=== PATIENT | female | born 1985 | race Caucasian/White ===

== ENCOUNTER 2017-08-09 05:29 | Inpatient (IN) ==
[2017-08-09] MEDS ORDERED: 0.9 % Sodium Chloride 1,000 ML IVC ONE (05:43)
[2017-08-09] MEDS ORDERED: *HR* LORazepam 1 MG TABLET PO ONE (05:46)
[2017-08-09] MEDS ORDERED: Ibuprofen 600 MG TABLET PO ONE (05:46)
--- NOTE | 2017-08-09 05:49 | Emergency Department Note ---
START Narrative - START START: I reviewed nursing notes and vital signs. Patient is a 31-year-old female with known history of IV drug use, presents with worsening infection to her right upper extremity. I had seen the patient 2 days ago in fast track area, at that time her arm is concerning for cellulitis and possible abscess. She had declined incision and drainage, and evaluation at bedside ultrasound at that time. She did receive a prescription of antibiotics, recommendations to return with any worsening symptoms or no improvement. She returns today with worsening redness, swelling, and pain. She mentions that she had lost her prescription of antibiotics. She denies any drug use in the past 2 days. On examination, she does have significant worsening of swelling, erythema. She also has decreased range of motion of her fingers, and they are slightly flexed. She does have worsening pain with extension of her elbow. I have ordered a sepsis workup, since patient is tachycardic, and known source of infection. I have ordered her ibuprofen for pain, she does appear anxious, and may be withdrawing. I have ordered Ativan. I have ordered an x-ray as patient has described IV drug use. I also discussed patient with Dr. Pak, who also had face time with patient. He agrees with sepsis workup, and x-ray, also advised for IV Zosyn and vancomycin, clindamycin. He mentions concerning signs for chest fasciitis and advised for a CT the extremity, and treatment with methadone as well. Due to concern for the nec fasciitis, Dr. Pak I did discuss patient with on- call general surgeon Dr. Gonzalez, who had advised for consult with orthopedics since it did involve his hands. He also advised for Haldol. This is a start note. It is at the end of my shift. Patient will be seen and evaluated by dayshift provider, Jaqueline Graf CNP. Please see her further documentation for details.
[2017-08-09] MEDS ORDERED: *HR* Methadone 5 MG TABLET PO ONE (05:58)
[2017-08-09] MEDS ORDERED: Haloperidol Lactate 5 MG/ML VIAL IM ONE (06:08)
--- NOTE | 2017-08-09 06:13 | Emergency Department Note ---
Disposition Clinical Impression: Venous thromboembolism, IV drug abuse Cellulitis Qualifiers: Site of cellulitis: extremity Site of cellulitis of extremity: upper extremity Laterality: right Qualified Code(s): L03.113 - Cellulitis of right upper limb Disposition: Admitted As Inpatient Condition: Fair General Adult HPI - General Chief complaint: ED Skin/Abscess/Foreign Body Stated complaint: right arm abcess Time Seen by Provider: 08/09/17 05:41 Source: patient Limitations: no limitations - History of Present Illness Pain Scale: 10 - Related Data Home Medications Medication Instructions Recorded Confirmed Unable To Obtain [Unable to Obtain] 08/10/17 08/10/17 Allergies Allergy/AdvReac Type Severity Reaction Status Date / Time No Known Allergies Allergy Verified 08/07/17 17:53 Past Medical History - Past Medical History Medical history: Reports: no medical history, other Psychiatric history: Reports: anxiety - Social History Smoking Status: Current every day smoker Smokeless Tobacco Status: No Alcohol use: Reports: none Drug use: Reports: opiates, IV Drug Use, prescription drug abuse, other Physical Exam - General Limitations: no limitations General appearance: alert, in no apparent distress Course Vital Signs Temperature 98.7 F 08/09/17 05:32 Pulse Rate 101 08/09/17 05:32 Respiratory Rate 20 08/09/17 05:32 Blood Pressure 110/73 08/09/17 05:32 O2 Sat by Pulse Oximetry 95 08/09/17 05:32 Temperature 98.0 F 08/10/17 14:52 Pulse Rate 65 08/10/17 14:52 Respiratory Rate 16 08/10/17 14:52 Blood Pressure 111/74 08/10/17 14:52 O2 Sat by Pulse Oximetry 99 08/10/17 14:52 Oxygen Delivery Oxygen Delivery Room Air Medical Decision Making - Lab Data Result diagrams: 08/10/17 04:12 08/10/17 04:12 Lab Results 08/09/17 08/09/17 08/09/17 Range/Units 05:59 06:09 06:09 WBC 18.0 H (4.3-11.1) K/mcL RBC 4.68 (3.82-4.97) M/mcL Hgb 14.1 (11.5-15.4) g/dL Hct 41.4 (35.3-44.9) % MCV 88.5 (83.0-100.0) fL MCH 30.1 (28.0-33.3) pg MCHC 34.1 (31.6-35.5) g/dL RDW 12.7 (11.5-14.5) % Plt Count 294 (140-400) K/mcL MPV 8.7 L (9.4-12.4) fL Immature Gran % 0.5 (0-4) % Seg Neutrophils % 86.2 % Lymphocytes % 6.4 % Monocytes % 6.4 % Eosinophils % 0.1 % Basophils % 0.4 % Neutrophils # 15.5 H (1.6-8.9) K/mcL Lymphocytes # 1.2 (0.6-4.6) K/mcL Monocytes # 1.2 (0.0-1.3) K/mcL Eosinophils # 0.0 (0.0-0.6) K/mcL Basophils # 0.1 (0.0-0.2) K/mcL ESR (0-15) mm/hr Sodium 131 L (136-145) mEq/L Potassium 3.9 (3.5-5.1) mEq/L Chloride 98 (98-107) mEq/L Carbon Dioxide 25 (23-29) mEq/L BUN 9 (6-20) mg/dL Creatinine 0.66 (0.60-1.20) mg/dL Est GFR ( Amer) > 60 (> 60) Est GFR (Non-Af Amer) > 60 (> 60) BUN/Creatinine Ratio 14 (6-26) Glucose 155 H (70-105) mg/dL Calculated Osmolality 274 L (280-300) Lactic Acid (0.5-2.2) mmol/L Calcium 9.4 (8.6-10.3) mg/dL C-Reactive Protein (Less than 10) mg/L Urine Color (Yellow) Urine Clarity (Clear) Urine pH (5.0-8.0) pH Units Ur Specific [place] (1.010-1.025) Urine Protein (Neg-Trace) mg/dL Urine Glucose (UA) (Normal) mg/dL Urine Ketones (Negative) mg/dL Urine Blood (Negative) Urine Nitrite (Negative) Urine Bilirubin (Negative) Urine Urobilinogen (Normal) mg/dL Ur Leukocyte Esterase (Negative) Urine Microscopic RBC Urine Microscopic WBC (0-3) per hpf Ur Squamous Epith Cells (None-Few) per lpf Urine Bacteria (None-Few) per hpf Hyaline Casts (None-Few) per lpf Ur Culture Indicated? (NO) A. baumannii (PCR) Not Detected (Not Detect) Nahomy albicans (PCR) Not Detected (Not Detect) C. glabrata (PCR) Not Detected (Not Detect) C. krusei (PCR) Not Detected (Not Detect) C. parapsilosis (PCR) Not Detected (Not Detect) C. tropicalis (PCR) Not Detected (Not Detect) Enterobacteriac sp PCR Not Detected (Not Detect) E. cloacae complex PCR Not Detected (Not Detect) Enterococcus sp PCR Not Detected (Not Detect) E. coli (PCR) Not Detected (Not Detect) H. influenzae (PCR) Not Detected (Not Detect) Klebsiella oxytoca PCR Not Detected (Not Detect) Klebsiella pneumoniae Not Detected (Not Detect) List. monocytogenes PCR Not Detected (Not Detect) N. meningitidis (PCR) Not Detected (Not Detect) Proteus species (PCR) Not Detected (Not Detect) Serratia marcescens PCR Not Detected (Not Detect) Staphylococcus sp PCR Not Detected (Not Detect) Staph aureus (PCR) Not Detected (Not Detect) mecA-Methicil Res Gene Not Detected (Not Detect) Streptococcus sp PCR DETECTED A (Not Detect) Group A Strep DNA DETECTED A (Not Detect) Group B Strep (PCR) Not Detected (Not Detect) Strep pneumoniae (PCR) Not Detected (Not Detect) P. aeruginosa (PCR) Not Detected (Not Detect) Baetriz/B-Vanco Res Genes Not Detected (Not Detect) KPC (blaKPC) Detect PCR Not Detected (Not Detect) 08/09/17 08/09/17 08/09/17 Range/Units 06:09 06:09 06:09 WBC (4.3-11.1) K/mcL RBC (3.82-4.97) M/mcL Hgb (11.5-15.4) g/dL Hct (35.3-44.9) % MCV (83.0-100.0) fL MCH (28.0-33.3) pg MCHC (31.6-35.5) g/dL RDW (11.5-14.5) % Plt Count (140-400) K/mcL MPV (9.4-12.4) fL Immature Gran % (0-4) % Seg Neutrophils % % Lymphocytes % % Monocytes % % Eosinophils % % Basophils % % Neutrophils # (1.6-8.9) K/mcL Lymphocytes # (0.6-4.6) K/mcL Monocytes # (0.0-1.3) K/mcL Eosinophils # (0.0-0.6) K/mcL Basophils # (0.0-0.2) K/mcL ESR 22 H (0-15) mm/hr Sodium (136-145) mEq/L Potassium (3.5-5.1) mEq/L Chloride (98-107) mEq/L Carbon Dioxide (23-29) mEq/L BUN (6-20) mg/dL Creatinine (0.60-1.20) mg/dL Est GFR ( Amer) (> 60) Est GFR (Non-Af Amer) (> 60) BUN/Creatinine Ratio (6-26) Glucose (70-105) mg/dL Calculated Osmolality (280-300) Lactic Acid 1.6 (0.5-2.2) mmol/L Calcium (8.6-10.3) mg/dL C-Reactive Protein 257 H (Less than 10) mg/L Urine Color (Yellow) Urine Clarity (Clear) Urine pH (5.0-8.0) pH Units Ur Specific [place] (1.010-1.025) Urine Protein (Neg-Trace) mg/dL Urine Glucose (UA) (Normal) mg/dL Urine Ketones (Negative) mg/dL Urine Blood (Negative) Urine Nitrite (Negative) Urine Bilirubin (Negative) Urine Urobilinogen (Normal) mg/dL Ur Leukocyte Esterase (Negative) Urine Microscopic RBC Urine Microscopic WBC (0-3) per hpf Ur Squamous Epith Cells (None-Few) per lpf Urine Bacteria (None-Few) per hpf Hyaline Casts (None-Few) per lpf Ur Culture Indicated? (NO) A. baumannii (PCR) (Not Detect) Nahomy albicans (PCR) (Not Detect) C. glabrata (PCR) (Not Detect) C. krusei (PCR) (Not Detect) C. parapsilosis (PCR) (Not Detect) C. tropicalis (PCR) (Not Detect) Enterobacteriac sp PCR (Not Detect) E. cloacae complex PCR (Not Detect) Enterococcus sp PCR (Not Detect) E. coli (PCR) (Not Detect) H. influenzae (PCR) (Not Detect) Klebsiella oxytoca PCR (Not Detect) Klebsiella pneumoniae (Not Detect) List. monocytogenes PCR (Not Detect) N. meningitidis (PCR) (Not Detect) Proteus species (PCR) (Not Detect) Serratia marcescens PCR (Not Detect) Staphylococcus sp PCR (Not Detect) Staph aureus (PCR) (Not Detect) mecA-Methicil Res Gene (Not Detect) Streptococcus sp PCR (Not Detect) Group A Strep DNA (Not Detect) Group B Strep (PCR) (Not Detect) Strep pneumoniae (PCR) (Not Detect) P. aeruginosa (PCR) (Not Detect) Beatriz/B-Vanco Res Genes (Not Detect) KPC (blaKPC) Detect PCR (Not Detect) 08/09/17 Range/Units 06:20 WBC (4.3-11.1) K/mcL RBC (3.82-4.97) M/mcL Hgb (11.5-15.4) g/dL Hct (35.3-44.9) % MCV (83.0-100.0) fL MCH (28.0-33.3) pg MCHC (31.6-35.5) g/dL RDW (11.5-14.5) % Plt Count (140-400) K/mcL MPV (9.4-12.4) fL Immature Gran % (0-4) % Seg Neutrophils % % Lymphocytes % % Monocytes % % Eosinophils % % Basophils % % Neutrophils # (1.6-8.9) K/mcL Lymphocytes # (0.6-4.6) K/mcL Monocytes # (0.0-1.3) K/mcL Eosinophils # (0.0-0.6) K/mcL Basophils # (0.0-0.2) K/mcL ESR (0-15) mm/hr Sodium (136-145) mEq/L Potassium (3.5-5.1) mEq/L Chloride (98-107) mEq/L Carbon Dioxide (23-29) mEq/L BUN (6-20) mg/dL Creatinine (0.60-1.20) mg/dL Est GFR ( Amer) (> 60) Est GFR (Non-Af Amer) (> 60) BUN/Creatinine Ratio (6-26) Glucose (70-105) mg/dL Calculated Osmolality (280-300) Lactic Acid (0.5-2.2) mmol/L Calcium (8.6-10.3) mg/dL C-Reactive Protein (Less than 10) mg/L Urine Color Dark Yellow (Yellow) Urine Clarity Cloudy A (Clear) Urine pH 6.5 (5.0-8.0) pH Units Ur Specific [place] 1.030 H (1.010-1.025) Urine Protein 30 H (Neg-Trace) mg/dL Urine Glucose (UA) Normal (Normal) mg/dL Urine Ketones Negative (Negative) mg/dL Urine Blood Negative (Negative) Urine Nitrite Negative (Negative) Urine Bilirubin Small H (Negative) Urine Urobilinogen 4.0 H (Normal) mg/dL Ur Leukocyte Esterase Negative (Negative) Urine Microscopic RBC Test Not Performed Urine Microscopic WBC 5-15 H (0-3) per hpf Ur Squamous Epith Cells Many H (None-Few) per lpf Urine Bacteria Few (None-Few) per hpf Hyaline Casts None Seen (None-Few) per lpf Ur Culture Indicated? NO (NO) A. baumannii (PCR) (Not Detect) Nahomy albicans (PCR) (Not Detect) C. glabrata (PCR) (Not Detect) C. krusei (PCR) (Not Detect) C. parapsilosis (PCR) (Not Detect) C. tropicalis (PCR) (Not Detect) Enterobacteriac sp PCR (Not Detect) E. cloacae complex PCR (Not Detect) Enterococcus sp PCR (Not Detect) E. coli (PCR) (Not Detect) H. influenzae (PCR) (Not Detect) Klebsiella oxytoca PCR (Not Detect) Klebsiella pneumoniae (Not Detect) List. monocytogenes PCR (Not Detect) N. meningitidis (PCR) (Not Detect) Proteus species (PCR) (Not Detect) Serratia marcescens PCR (Not Detect) Staphylococcus sp PCR (Not Detect) Staph aureus (PCR) (Not Detect) mecA-Methicil Res Gene (Not Detect) Streptococcus sp PCR (Not Detect) Group A Strep DNA (Not Detect) Group B Strep (PCR) (Not Detect) Strep pneumoniae (PCR) (Not Detect) P. aeruginosa (PCR) (Not Detect) Beatriz/B-Vanco Res Genes (Not Detect) KPC (blaKPC) Detect PCR (Not Detect) Attestation Statement - Attestation Attestation: I examined this patient and my medical decision-making was reviewed with the Resident Physician. I agree with the documented findings, disposition and treatment plan as described except to the extent set forth below. Concern for possible necrotizing fasciitis. We will obtain surgical consult from orthopedic surgery as this does involve the hand. CT of the arm will be obtained. Cultures, broad-spectrum antibiotics will be initiated. Pain control will be obtained.
[2017-08-09 06:24] LABS: Basophils # 0.1 K/mcL (0.0-0.2); Basophils % 0.4 %; Eosinophils % 0.1 %; Hematocrit 41.4 % (35.3-44.9); Hemoglobin 14.1 g/dL (11.5-15.4); Immature Granulocytes % 0.5 % (0-4); Lymphocytes # 1.2 K/mcL (0.6-4.6); Lymphocytes % 6.4 %; Mean Corpuscular HGB Conc 34.1 g/dL (31.6-35.5); Mean Corpuscular Hemoglobin 30.1 pg (28.0-33.3); Mean Corpuscular Volume 88.5 fL (83.0-100.0); Mean Platelet Volume 8.7 fL (9.4-12.4); Monocytes # 1.2 K/mcL (0.0-1.3); Monocytes % 6.4 %; Neutrophils # 15.5 K/mcL (1.6-8.9); Platelet Count 294 K/mcL (140-400); Red Blood Count 4.68 M/mcL (3.82-4.97); Red Cell Distribution Width 12.7 % (11.5-14.5); Segmented Neutrophils % 86.2 %
[2017-08-09 06:33] LABS: Bilirubin,Urine Small (Negative); Blood,Urine Negative (Negative); Clarity,Urine Cloudy (Clear); Color,Urine Dark Yellow (Yellow); Glucose,Urine (UA) Normal (Normal); Ketones,Urine Negative (Negative); Leukocyte Esterase,Urine Negative (Negative); Nitrite,Urine Negative (Negative); PH,Urine 6.5 pH Units (5.0-8.0); Protein,Urine 30 mg/dL (Neg-Trace)
[2017-08-09 06:36] LABS: Bacteria,Urine Few per hpf (None-Few); Hyaline Casts,Urine None Seen per lpf (None-Few); Squamous Epithelial Cell,Urine Many per lpf (None-Few)
[2017-08-09 06:40] LABS: BUN/Creatinine Ratio 14 (6-26); Blood Urea Nitrogen 9 mg/dL (6-20); Calcium 9.4 mg/dL (8.6-10.3); Carbon Dioxide 25 mEq/L (23-29); Chloride 98 mEq/L (98-107); Glucose 155 mg/dL (70-105); Osmolality,Calculated 274 (280-300); Potassium 3.9 mEq/L (3.5-5.1); Sodium 131 mEq/L (136-145); eGFR For African Americans > 60 (> 60); eGFR For Non-African Americans > 60 (> 60)
[2017-08-09] MEDS ORDERED: Piperacillin/Tazobactam 3.375 GM in 0.9 % Sodium Chloride Mini Bag 100 ML IVPB ONE (06:52)
[2017-08-09] MEDS ORDERED: Clindamycin 600 MG/50 ML 600 MG/50 ML IV.SOLN IVPB ONE (06:53)
--- NOTE | 2017-08-09 07:04 | Emergency Department Note ---
Disposition Clinical Impression: Venous thromboembolism, IV drug abuse Cellulitis Qualifiers: Site of cellulitis: extremity Site of cellulitis of extremity: upper extremity Laterality: right Qualified Code(s): L03.113 - Cellulitis of right upper limb Disposition: Admitted As Inpatient Condition: Fair General Adult HPI - General Chief complaint: ED Skin/Abscess/Foreign Body Stated complaint: right arm abcess Time Seen by Provider: 08/09/17 05:41 Source: patient Limitations: no limitations Nursing Notes Reviewed: Yes Vital Signs Reviewed: Yes - History of Present Illness HPI Narrative: 31 year old with history of IV drug using presents with right arm abscess. pt stated she felt right arm redness and swelling two days ago after injection of Heroin. Pt reported chill and hot. Pt reported severe pain and body shaking. No cough. No shortness of breath. No chest pain. Last time took drug was two days ago Onset (ago): day(s) (3) Location: upper extremity Radiation: non-radiation Pain Scale: 10 Consistency: constant - Related Data Previous Rx's Medication Instructions Recorded Naproxen [Naprosyn] 500 mg PO BID PRN #15 tablet 02/27/16 Ibuprofen 800 mg PO 24XD PRN #24 tablet 03/18/16 Sulfamethoxazole/Trimeth DS 1 each PO BID #20 tablet 03/18/16 [Bactrim DS] cephALEXin [Keflex] 500 mg PO QID 10 Days capsule 03/18/16 Albuterol Sulfate [Albuterol 2 puff IH Q6H PRN #1 inhaler 09/08/16 Inhaler] predniSONE [PredniSONE] 10 mg PO DAILY #20 tablet 09/08/16 Sulfamethoxazole/Trimeth DS 1 each PO BID 10 Days tablet 08/07/17 [Bactrim DS] cephALEXin [Keflex] 500 mg PO QID 10 Days capsule 08/07/17 Allergies Allergy/AdvReac Type Severity Reaction Status Date / Time No Known Allergies Allergy Verified 08/07/17 17:53 Constitutional: Reports: fever, chills. Denies: weakness Eyes: Denies: eye pain, eye discharge ENT ED: Denies: ear pain, throat pain, dental pain Cardiovascular: Denies: chest pain, palpitations, dyspnea on exertion Respiratory: Denies: cough, dyspnea, wheezes Gastrointestinal: Denies: abdominal pain, nausea, vomiting Genitourinary: Denies: urgency, dysuria, frequency Musculoskeletal: Denies: back pain, neck pain, joint swelling Integumentary: Reports: other (right forearm swelling, redness and pain). Denies: rash Neurological: Denies: headache, weakness, numbness Psychiatric: Denies: anxiety, depression, suicidal thoughts Endocrine: Denies: fatigue, heat or cold intolerance Hematological/Lymphatic: Denies: easy bleeding, easy bruising Allergic/Immunologic: Denies: facial swelling, urticaria Past Medical History - Past Medical History Medical history: Reports: no medical history, other Psychiatric history: Reports: anxiety - Social History Smoking Status: Current every day smoker Smokeless Tobacco Status: No Alcohol use: Reports: none Drug use: Reports: opiates, IV Drug Use, prescription drug abuse, other Physical Exam - General Limitations: no limitations General appearance: alert, in no apparent distress - Head Head exam: atraumatic, normal inspection - Eye Eye exam: Present: normal appearance. Absent: scleral icterus, conjunctival injection - ENT ENT exam: normal exam, normal external ear exam - Neck Neck exam: Present: normal inspection, full ROM, trachea midline. Absent: tenderness - Chest Chest inspection: Present: normal inspection, symmetric chest wall rise. Absent : tenderness - Cardiovascular Cardiovascular exam: Present: tachycardia - Abdominal Exam Abdominal exam: Present: soft, Non-Tender - Extremities Exam Extremities exam: Present: other (right whole forearm swelling, erythema. Warmth and tender to palpation, no crepitus noted) - Expanded Lower Extremity Exam Neurovascular/Tendon exam: Present: normal capillary refill. Absent: pulse deficit - Back Exam Back exam: Present: normal inspection, full ROM. Absent: tenderness - Neurological Exam Neurological exam: Present: alert, oriented X3 - Psychiatric Psychiatric exam: Present: agitated, anxious - Skin Skin exam: Present: warm, other (see the extremity exam) Course Vital Signs Temperature 98.7 F 08/09/17 05:32 Pulse Rate 101 08/09/17 05:32 Respiratory Rate 20 08/09/17 05:32 Blood Pressure 110/73 08/09/17 05:32 O2 Sat by Pulse Oximetry 95 08/09/17 05:32 Temperature 98.7 F 08/09/17 05:32 Pulse Rate 88 08/09/17 08:00 Respiratory Rate 16 08/09/17 08:46 Blood Pressure 107/66 08/09/17 08:46 O2 Sat by Pulse Oximetry 96 08/09/17 08:00 Oxygen Delivery Oxygen Delivery Room Air Medical Decision Making - MDM Narrative Medical decision making narrative: 31 year old with history of IV drug using presents with right arm abscess. pt stated she felt right arm redness and swelling two days ago after injection of Heroin. Pt reported chill and hot. Pt reported severe pain and body shaking. Last time drug using was two days ago. Physical exam: Right forearm swelling, erythema, warmth and tender to palpation, no crepitus. White cell 109, CRP and ESR elevated, normal Lactic acid level. Dr. Pak saw the pt as well, considering cellulitis VS. abscess, concerning of possible necrotizing fasciitis , Will start antibiotics immediately in ER, will consider Orho consult if CT support it. will admit pt. 07:15 am: CT upper extremity indicated soft tissue swelling (consistent with cellulitis) and medial cubital vein suspicious for a thrombus, Reviewed the CT result with Dr. Dewey, will start with Lovenox. 7:30 am, spoke with hospitalist Dr. Woods, pt is accepted to hospital - Lab Data Lab results reviewed: Yes I reviewed the patient's lab results. Result diagrams: 08/09/17 06:09 08/09/17 06:09 Lab Results 08/09/17 08/09/17 08/09/17 Range/Units 06:09 06:09 06:09 WBC 18.0 H (4.3-11.1) K/mcL RBC 4.68 (3.82-4.97) M/mcL Hgb 14.1 (11.5-15.4) g/dL Hct 41.4 (35.3-44.9) % MCV 88.5 (83.0-100.0) fL MCH 30.1 (28.0-33.3) pg MCHC 34.1 (31.6-35.5) g/dL RDW 12.7 (11.5-14.5) % Plt Count 294 (140-400) K/mcL MPV 8.7 L (9.4-12.4) fL Immature Gran % 0.5 (0-4) % Seg Neutrophils % 86.2 % Lymphocytes % 6.4 % Monocytes % 6.4 % Eosinophils % 0.1 % Basophils % 0.4 % Neutrophils # 15.5 H (1.6-8.9) K/mcL Lymphocytes # 1.2 (0.6-4.6) K/mcL Monocytes # 1.2 (0.0-1.3) K/mcL Eosinophils # 0.0 (0.0-0.6) K/mcL Basophils # 0.1 (0.0-0.2) K/mcL ESR (0-15) mm/hr Sodium 131 L (136-145) mEq/L Potassium 3.9 (3.5-5.1) mEq/L Chloride 98 (98-107) mEq/L Carbon Dioxide 25 (23-29) mEq/L BUN 9 (6-20) mg/dL Creatinine 0.66 (0.60-1.20) mg/dL Est GFR ( Amer) > 60 (> 60) Est GFR (Non-Af Amer) > 60 (> 60) BUN/Creatinine Ratio 14 (6-26) Glucose 155 H (70-105) mg/dL Calculated Osmolality 274 L (280-300) Lactic Acid 1.6 (0.5-2.2) mmol/L Calcium 9.4 (8.6-10.3) mg/dL C-Reactive Protein (Less than 10) mg/L Urine Color (Yellow) Urine Clarity (Clear) Urine pH (5.0-8.0) pH Units Ur Specific [place] (1.010-1.025) Urine Protein (Neg-Trace) mg/dL Urine Glucose (UA) (Normal) mg/dL Urine Ketones (Negative) mg/dL Urine Blood (Negative) Urine Nitrite (Negative) Urine Bilirubin (Negative) Urine Urobilinogen (Normal) mg/dL Ur Leukocyte Esterase (Negative) Urine Microscopic RBC Urine Microscopic WBC (0-3) per hpf Ur Squamous Epith Cells (None-Few) per lpf Urine Bacteria (None-Few) per hpf Hyaline Casts (None-Few) per lpf Ur Culture Indicated? (NO) 08/09/17 08/09/17 08/09/17 Range/Units 06:09 06:09 06:20 WBC (4.3-11.1) K/mcL RBC (3.82-4.97) M/mcL Hgb (11.5-15.4) g/dL Hct (35.3-44.9) % MCV (83.0-100.0) fL MCH (28.0-33.3) pg MCHC (31.6-35.5) g/dL RDW (11.5-14.5) % Plt Count (140-400) K/mcL MPV (9.4-12.4) fL Immature Gran % (0-4) % Seg Neutrophils % % Lymphocytes % % Monocytes % % Eosinophils % % Basophils % % Neutrophils # (1.6-8.9) K/mcL Lymphocytes # (0.6-4.6) K/mcL Monocytes # (0.0-1.3) K/mcL Eosinophils # (0.0-0.6) K/mcL Basophils # (0.0-0.2) K/mcL ESR 22 H (0-15) mm/hr Sodium (136-145) mEq/L Potassium (3.5-5.1) mEq/L Chloride (98-107) mEq/L Carbon Dioxide (23-29) mEq/L BUN (6-20) mg/dL Creatinine (0.60-1.20) mg/dL Est GFR ( Amer) (> 60) Est GFR (Non-Af Amer) (> 60) BUN/Creatinine Ratio (6-26) Glucose (70-105) mg/dL Calculated Osmolality (280-300) Lactic Acid (0.5-2.2) mmol/L Calcium (8.6-10.3) mg/dL C-Reactive Protein 257 H (Less than 10) mg/L Urine Color Dark Yellow (Yellow) Urine Clarity Cloudy A (Clear) Urine pH 6.5 (5.0-8.0) pH Units Ur Specific [place] 1.030 H (1.010-1.025) Urine Protein 30 H (Neg-Trace) mg/dL Urine Glucose (UA) Normal (Normal) mg/dL Urine Ketones Negative (Negative) mg/dL Urine Blood Negative (Negative) Urine Nitrite Negative (Negative) Urine Bilirubin Small H (Negative) Urine Urobilinogen 4.0 H (Normal) mg/dL Ur Leukocyte Esterase Negative (Negative) Urine Microscopic RBC Test Not Performed Urine Microscopic WBC 5-15 H (0-3) per hpf Ur Squamous Epith Cells Many H (None-Few) per lpf Urine Bacteria Few (None-Few) per hpf Hyaline Casts None Seen (None-Few) per lpf Ur Culture Indicated? NO (NO) - Radiology Data Radiology results reviewed: Yes I reviewed the patient's radiology results. CT/CT UE RT w con IMPRESSION: 1. Subcutaneous edema/inflammation along the anteromedial aspect of the arm, extending to the antecubital fossa and proximal forearm. There is no evidence of formed fluid collection or abscess. 2. Filling defect in the distal portion of the basilic vein and medial cubital vein suspicious for a thrombus. Consider venous ultrasound for further evaluation of venous thrombus as a possible cause of pain and swelling. 3. No acute osseous abnormality.
[2017-08-09] MEDS ORDERED: *HR* Enoxaparin 40 MG/0.4 ML SYRINGE SQ STA (07:20)
[2017-08-09] MEDS ORDERED: *HR* HYDROcodone/Acet 10/325 mg TABLET PO PRN (12:09)
[2017-08-09] MEDS ORDERED: Acetaminophen 325 MG TABLET PO PRN (12:10)
[2017-08-09] MEDS ORDERED: *HR* OxyCODONE Immed Rel 5 MG TABLET PO PRN (12:10)
[2017-08-09] MEDS ORDERED: Naloxone 0.4 MG/ML INJ IVP PRN (12:37)
[2017-08-09] MEDS ORDERED: D5% in Water 1,000 ML IVC PRN (12:37)
[2017-08-09] MEDS ORDERED: Dextrose Gel 15 GM/37.5 ML TUBE PO PRN ×2 (12:37)
[2017-08-09] MEDS ORDERED: *HR* Dextrose 50 % in Water (Syg) 50 ML SYRINGE IVP PRN (12:37)
[2017-08-09] MEDS: Insulin LISPRO 300 UNITS/3 ML VIAL SQ SCH ×2 (14:09→18:05)
[2017-08-09] MEDS: 0.9 % Sodium Chloride 1,000 ML IVC SCH (14:26)
[2017-08-09] MEDS: *HR* Enoxaparin 40 MG/0.4 ML SYRINGE SQ SCH (18:03)
[2017-08-09] MEDS: Clindamycin 600 MG/50 ML 600 MG/50 ML IV.SOLN IVPB SCH ×2 (18:04→23:44)
[2017-08-09] MEDS: Piperacillin/Tazobactam 3.375 GM in 0.9 % Sodium Chloride Mini Bag 100 ML IVPB SCH ×2 (18:04→23:45)
[2017-08-09] MEDS ORDERED: Insulin LISPRO 300 UNITS/3 ML VIAL SQ SCH (21:00)
[2017-08-09 21:11] LABS: Enterococcus by PCR Not Detected (Not Detect); Staphylococcus aureus by PCR Not Detected (Not Detect); Streptococcus by PCR ***DETECTED*** (Not Detect); blaKPC Carbapenem-Resist Gene Not Detected (Not Detect); mecA Methicillin-Resist Gene Not Detected (Not Detect); vanA/B Vancomycin-Resist Genes Not Detected (Not Detect)
[2017-08-09 21:12] LABS: Acinetobacter baumannii by PCR Not Detected (Not Detect); Candida albicans by PCR Not Detected (Not Detect); Candida glabrata by PCR Not Detected (Not Detect); Candida krusei by PCR Not Detected (Not Detect); Candida parapsilosis by PCR Not Detected (Not Detect); Candida tropicalis by PCR Not Detected (Not Detect); Escherichia coli by PCR Not Detected (Not Detect); Klebsiella oxytoca by PCR Not Detected (Not Detect); Klebsiella pneumoniae by PCR Not Detected (Not Detect); Pseudomonas aeruginosa by PCR Not Detected (Not Detect); Serratia marcescens by PCR Not Detected (Not Detect); Streptococcus agalactiae(B)PCR Not Detected (Not Detect); Streptococcus pneumoniae PCR Not Detected (Not Detect); Streptococcus pyogenes (A) PCR ***DETECTED*** (Not Detect)
--- NOTE | 2017-08-09 21:55 | Internal Med History&Physical ---
Date of Encounter: 08/09/17 Time of Encounter: 15:37 Internal Medicine - H&P: HPI Chief complaint: Right Arm Pain Admitted From: Emergency Dept Plans for Post Hospital Care: Home History of present illness: Ms. Escalante is a 31 year old white female with PMH of IVDU who presented to ED this morning for pain in her right arm. She was seen in ED 2 days prior for right arm pain and swelling concerning for cellulitis and abscess. She declined I&D and ultrasound at that time. She was discharged with antibiotics, but symptoms worsened. Today, she had erythema, edema, and severe pain, so decided to come to ED. Per patient, she was not taking prescribed antibiotics. She denies any recent drug use. In the ED, she was found to have elevated WBC , ESR, and CRP. She was given IV vancomycin, zosyn, and clindamycin. CT RUE showed soft tissue swelling and suspected medical cubital vein thrombus. She was given lovenox 40 mg SQ in the ED. I was asked to admit patient for RUE cellulitis and DVT. During my interview, patient is asleep and difficult to arouse. She was given haldol and ativan in the ED. She arouses to pain, but does not provide any history. Most of history was obtained from chart review and discussion with ED SIZE CHANGER. Past Med Surg Social Fam HX - Past Medical History Attestation: No The following information was validated with the patient. Source: unable to obtain (Patient is somnolent and non-verbal, so I am unable to verify PMH, PSH, FH, and SH with patient. Information here is obtained from chart review.), old records reviewed Medical history: no medical history, other (IVDU) Psychiatric history: anxiety - Past Surgical History Surgical History: other (Unable to obtain as per above.) - Social History Smoking Status: Current every day smoker Smokeless Tobacco Status: No Alcohol use: none Drug use: opiates, IV Drug Use, prescription drug abuse, other - Additional Family History Additional family history: Unable to obtain as per above. Internal Medicine - H&P: Meds Unable To Obtain [Unable to Obtain] 08/10/17 [History] 3 Allergy/AdvReac Type Severity Reaction Status Date / Time No Known Allergies Allergy Verified 08/07/17 17:53 ROS unobtainable: due to mental status All Systems PM: A 10-system review of systems was performed and is negative for pertinent findings except as documented above in the HPI. Review of systems: Patient is somnolent and difficult to arouse, likely due to haldol and ativan administration in the ED. I am unable to obtain ROS from patient, as she does not speak to me. - Constitutional Vitals: Temp Pulse Resp BP Pulse Ox 98.3 F 95 18 111/64 95 08/09/17 20:13 08/09/17 18:21 08/09/17 18:21 08/09/17 18:21 08/09/17 18:21 General appearance: Present: A&O X 0, no acute distress. Absent: cooperative, answers questions appropriately - Head Head exam: Present: atraumatic, normocephalic - Eye Eye exam: Present: PERRL. Absent: scleral icterus - ENT ENT exam: Present: mucous membranes moist, normal external ear exam - Neck Neck exam general surgery: Present: supple, trachea midline. Absent: lymphadenopathy, tenderness, thyromegaly - Respiratory Respiratory exam: Present: CTAB. Absent: accessory muscle use, rales, rhonchi, wheezes Additional comments: Normal WOB - Cardiovascular Cardiovascular exam: Present: RRR, +S1, +S2. Absent: diastolic murmur, gallop, rubs, systolic murmur Additional comments: No BLE edema - GI/Abdominal GI/Abdominal exam: Present: normal bowel sounds, soft. Absent: distended, hepatomegaly, mass, splenomegaly, tenderness - Extremities Exam Extremities exam: Present: normal capillary refill, radial pulses palpable and symmetrical. Absent: cyanotic, pedal edema Additional comments: Severe TTP over RUE from below shoulder to above hand. Moderate erythema and edema of same area of RUE. No induration or discrete abscess visualized or palpated. Increased warmth of RUE. - Neurological Exam Neurological exam: Absent: alert, oriented X3 Additional comments: Unable to fully evaluate due to patient condition. - Psychiatric Psychiatric exam: Absent: agitated Additional comments: Unable to fully evaluate due to patient condition. - Skin Skin exam: Present: dry, intact, warm. Absent: cyanosis Additional comments: RUE exam as per above. Internal Med - H&P Results - Labs CBC & Chem 7: 08/10/17 04:12 08/10/17 04:12 - Assessment and plan (1) Cellulitis of right upper extremity Current Visit: Yes Status: Acute Assessment and plan: Admit as inpatient. Continue IV vancomycin, zosyn, and clindamycin started in ED. Start gentle hydration with IV NS. Repeat labwork in AM. (2) Deep venous thrombosis of right upper extremity Current Visit: Yes Status: Acute Assessment and plan: Start weight-based lovenox BID. Obtain RUE ultrasound. Qualifiers: Affected thrombotic vein of extremity: other upper extremity vein Chronicity: acute Qualified Code(s): I82.621 - Acute embolism and thrombosis of deep veins of right upper extremity (3) IV drug abuse Current Visit: Yes Status: Acute Assessment and plan: Counselled on consequences of drug abuse and rehabilitation options. Not interested in help at this time. - Time Spent With Patient Total time spent is greater than 50% in coordination of care (as documented) at patient's floor/unit and/or counseling patient: less than 15 minutes
[2017-08-09 22:48] LABS: Estimated Average Glucose 114 mg/dl; Hemoglobin A1C 5.6 %
[2017-08-10 04:48] LABS: Basophils # 0.1 K/mcL (0.0-0.2); Basophils % 0.4 %; Eosinophils # 0.4 K/mcL (0.0-0.6); Eosinophils % 2.6 %; Hematocrit 35.9 % (35.3-44.9); Immature Granulocytes % 0.4 % (0-4); Lymphocytes # 1.3 K/mcL (0.6-4.6); Lymphocytes % 9.9 %; Mean Corpuscular HGB Conc 33.4 g/dL (31.6-35.5); Mean Corpuscular Volume 89.8 fL (83.0-100.0); Mean Platelet Volume 9.2 fL (9.4-12.4); Monocytes # 1.1 K/mcL (0.0-1.3); Monocytes % 8.4 %; Neutrophils # 10.5 K/mcL (1.6-8.9); Platelet Count 237 K/mcL (140-400); Red Cell Distribution Width 12.6 % (11.5-14.5); Segmented Neutrophils % 78.3 %
[2017-08-10 05:07] LABS: BUN/Creatinine Ratio 15 (6-26); Blood Urea Nitrogen 7 mg/dL (6-20); Calcium 8.3 mg/dL (8.6-10.3); Carbon Dioxide 21 mEq/L (23-29); Chloride 108 mEq/L (98-107); Glucose 106 mg/dL (70-105); Osmolality,Calculated 280 (280-300); Potassium 3.8 mEq/L (3.5-5.1); Sodium 136 mEq/L (136-145); eGFR For African Americans > 60 (> 60); eGFR For Non-African Americans > 60 (> 60)
[2017-08-10] MEDS: *HR* Enoxaparin 40 MG/0.4 ML SYRINGE SQ SCH (05:52)
[2017-08-10] MEDS: 0.9 % Sodium Chloride 1,000 ML IVC SCH ×2 (05:54→09:02)
[2017-08-10] MEDS: Clindamycin 600 MG/50 ML 600 MG/50 ML IV.SOLN IVPB SCH (08:48)
[2017-08-10] MEDS: Piperacillin/Tazobactam 3.375 GM in 0.9 % Sodium Chloride Mini Bag 100 ML IVPB SCH (08:49)
--- NOTE | 2017-08-10 10:46 | Infectious Disease Consult ---
Date of Encounter: 08/10/17 Time of Encounter: 10:44 Assessment and Plan (1) Sepsis Status: Acute Assessment and plan: Patient had 2 SIRS criteria on admission Secondary to cellulitis of the right upper extremity and bacteremia Qualifiers: Sepsis type: Streptococcus group A Qualified Code(s): A40.0 - Sepsis due to streptococcus, group A (2) Streptococcal bacteremia Status: Acute Assessment and plan: Blood cultures 2 out of 2 positive for gram-positive cocci in chain PCR picked up Streptococcus group a Likely sources cellulitis No endocarditis stigmata We will repeat blood cultures to make sure the bacteremia has resolved We will treat with penicillin G and clindamycin Duration of treatment 14 days from first negative culture (3) Right forearm cellulitis Status: Acute Assessment and plan: Causative organism is grew a strep secondary to IV drug use CT not revealing for any abscess or fluid collection Physical exam is remarkable and I am concerned for possible necrotizing fasciitis I we will consult surgery and see what they recommend Check CK level DC vancomycin and Zosyn Continue clindamycin Add penicillin Discussed with the hospitalist team (4) IV drug abuse Status: Acute Assessment and plan: Check hepatitis and HIV status (5) Venous thromboembolism Status: Acute (6) Hepatitis C Status: Acute Qualifiers: Viral hepatitis chronicity: chronic Hepatic coma status: without hepatic coma Qualified Code(s): B18.2 - Chronic viral hepatitis C Infectious Disease HPI - Data of Consult Patient: new to practice Consult date: 08/10/17 Requesting Physician: Мария Ybarra MD Primary Care Provider: PCP NONE - Consult Narrative Reason for consult: Bacteremia History of present illness: Ms. Escalante is a 31 year old female Patient is a 31-year-old woman who was admitted to [place] on August 09 with right arm pain, we are consulted today for streptococcal bacteremia and in patient with IV drug use. Patient is a 31-year-old woman with past medical history mentioned below and social history positive for IV drug use presented to the emergency Department 2 days prior to admission with right arm pain and swelling concerning for cellulitis and abscess. Patient refused imaging apparently at that time and was discharged home with Keflex and Bactrim 10 date total. No blood cultures were obtained at that time. Patient was doing worse clinically so she decided to come back to the emergency department and was admitted for further evaluation and workup. Since admission, patient has been febrile with a MAXIMUM TEMPERATURE of 101.3 Fahrenheit, patient has been tachycardic with a heart rate over 100. Her presenting WBC was 18,000 with 86% neutrophils no bands. Rest of her labs revealed an ESR of 22, normal kidney function and a CRP of 257. A UA was obtained which was nonrevealing. Blood cultures were obtained and 2 out of 2 sets are growing gram-positive cocci and PCR picked up Streptococcus group a. A CT of the right upper extremity red subcutaneous edema/inflammation along the anteromedial aspect of the arm extending to the antecubital foci and proximal forearm. There is no evidence of formed fluid collection or abscess. Filling defect in the distal portion of the basilic vein and medial cubital vein suspicious for a thrombus. No osseous abnormality. An ultrasound venous duplex was done and read upper extremity abnormal deep exam with right ulnar vein acute thrombosis. Upper extremity abnormal superficial exam with right cephalic and basilic vein acute thrombosis. Patient was started on vancomycin, Zosyn and clindamycin and we were asked to evaluate the patient and make further recommendations. On further examination the patient she does not appear toxic and her arm is pretty impressive for significant edema and very painful to touch and feels very hard. On further questioning patient also tells me that she knows that she has hepatitis C. CC: Мария Ybarra MD Past Med Surg Social Fam HX - Past Medical History Medical history: no medical history, other (IVDU) Psychiatric history: anxiety - Past Surgical History Surgical History: other (Unable to obtain as per above.) - Social History Smoking Status: Current every day smoker Smokeless Tobacco Status: No Alcohol use: none Drug use: opiates, IV Drug Use, prescription drug abuse, other Infectious Disease-CN:Meds Unable To Obtain [Unable to Obtain] 08/10/17 [History] 3 Allergy/AdvReac Type Severity Reaction Status Date / Time No Known Allergies Allergy Verified 08/07/17 17:53 Exam - Constitutional Vitals: Temp Pulse Resp BP Pulse Ox 98.3 F 82 14 135/82 96 08/10/17 07:08 08/10/17 07:08 08/10/17 07:08 08/10/17 07:08 08/10/17 07:08 General appearance: febrile, disheveled, thin - Head Head exam: Present: atraumatic, normocephalic - Eye Eye exam: Present: EOMI, PERRL, sclera anicteric Additional comments: No conjunctival hemorrhage noted. - ENT Additional comments: Mucous membranes dry. No oral lesions noted. - Neck Neck exam: Present: full ROM, normal inspection. Absent: lymphadenopathy - Respiratory Respiratory exam: Present: CTAB. Absent: wheezes Additional comments: Chest expanding symmetrically - Cardiovascular Cardiovascular exam: Present: RRR, +S1, +S2 Additional comments: I did not appreciate any murmur - GI/Abdominal GI/Abdominal exam: Present: normal bowel sounds, soft Additional comments: No tenderness - Extremities Exam Additional comments: Right upper extremity from a little bit below the elbow all the way to the knuckles with some erythema warm to touch and very hard and very tender - Neurological Exam Neurological exam: Present: alert, oriented X3. Absent: speech deficit - Skin Skin exam: Present: normal color. Absent: petechiae Infectious Disease CN: Results - Labs CBC & Chem 7: 08/10/17 04:12 08/10/17 04:12 Consult Discharge Plan - Plan Referrals: NONE,PCP [Primary Care Provider] -
[2017-08-10 13:04] LABS: Creatine Kinase 10 Units/L (30-223)
--- NOTE | 2017-08-10 14:24 | Internal Med Progress Note ---
Date of Encounter: 08/10/17 Time of Encounter: 14:26 - Assessment and plan (1) Sepsis Current Visit: Yes Status: Acute Assessment and plan: Due to right forearm cellulitis. With strep bacteremia. Continue antibiotics per infectious disease recommendations. High risk for complications. Qualifiers: Sepsis type: Streptococcus group A Qualified Code(s): A40.0 - Sepsis due to streptococcus, group A (2) Streptococcal bacteremia Current Visit: Yes Status: Acute Assessment and plan: Continue penicillin and clindamycin. (3) Cellulitis of right upper extremity Current Visit: Yes Status: Acute Assessment and plan: Cellulitis involving the right upper extremity. With strep bacteremia. Infectious disease consulted. Patient has been placed on penicillin and clindamycin. Infectious disease also concern for necrotizing fasciitis. We will consult orthopedics. CK levels normal but CRP elevated. (4) IV drug abuse Current Visit: Yes Status: Acute Assessment and plan: We will consult social contact worker. Monitor for withdrawal. (5) Deep venous thrombosis of right upper extremity Current Visit: Yes Status: Acute Assessment and plan: On Lovenox. Qualifiers: Affected thrombotic vein of extremity: other upper extremity vein Chronicity: acute Qualified Code(s): I82.621 - Acute embolism and thrombosis of deep veins of right upper extremity - Time Spent With Patient Total time spent is greater than 50% in coordination of care (as documented) at patient's floor/unit and/or counseling patient: - Subjective Interval history: Today's chest pain and swelling in her right upper extremity. She denies any fever or chills. Receiving antibiotics. Tolerating well. No adverse reactions. - Constitutional Vitals: Temp Pulse Resp BP Pulse Ox 98.2 F 73 16 123/83 99 08/10/17 10:58 08/10/17 10:58 08/10/17 10:58 08/10/17 10:58 08/10/17 10:58 General appearance: Present: cooperative, A&O X 3, no acute distress, answers questions appropriately - Neck Neck exam general surgery: Present: supple, trachea midline. Absent: lymphadenopathy - Respiratory Respiratory exam: Present: CTAB. Absent: accessory muscle use, rales, rhonchi, wheezes - Cardiovascular Cardiovascular exam: Present: RRR, +S1, +S2. Absent: diastolic murmur, gallop, rubs, systolic murmur - GI/Abdominal GI/Abdominal exam: Present: normal bowel sounds, soft, no peritoneal signs. Absent: distended, tenderness - Extremities Exam Extremities exam: Present: tenderness (Erythema and swelling involving the right upper extremity extending from just above the elbow down to her hand. Indurated and tender to palpation.), warm, radial pulses palpable and symmetrical. Absent: calf tenderness, cyanotic, pedal edema - Neurological Exam Neurological exam: Present: CN II-XII intact, oriented X3, no focal deficits. Absent: facial droop, speech deficit - Skin Skin exam: Present: dry, erythema, intact Internal Medicine: Result - Labs CBC & Chem 7: 08/10/17 04:12 08/10/17 04:12 Labs: Short CBC 08/10/17 Range/Units 04:12 WBC 13.4 H (4.3-11.1) K/mcL Hgb 12.0 D (11.5-15.4) g/dL Hct 35.9 (35.3-44.9) % Plt Count 237 (140-400) K/mcL Neutrophils # 10.5 H (1.6-8.9) K/mcL BMP 08/10/17 04:12 Sodium 136 Potassium 3.8 Chloride 108 H Carbon Dioxide 21 L BUN 7 Creatinine 0.46 L Glucose 106 H Calcium 8.3 L Consult Discharge Plan - Plan Referrals: NONE,PCP [Primary Care Provider] -
[2017-08-10 14:55] VITALS: BP 111/74
[2017-08-10] MEDS ORDERED: Penicillin G Potassium 4,000,000 UNIT in D5% in Water 100 ML IVPB SCH (16:00)
--- NOTE | 2017-08-10 17:14 | Event Note ---
Date of Encounter: 08/10/17 Time of Encounter: 17:13 Patient decided to leave the hospital AGAINST MEDICAL ADVICE. She was informed multiple times that this could mean very serious complications including . Unfortunately she has Streptococcus bacteremia and this cannot be treated with oral antibiotics. She understands these risks and is mentally capable of making decisions for herself. She still wishes to go home and will leave the hospital AGAINST MEDICAL ADVICE.
--- NOTE | 2017-08-11 07:58 | Orthopedic Consult Note ---
Date of Encounter: 08/10/17 Time of Encounter: 15:00 Assessment and Plan (1) Cellulitis of right upper extremity Status: Acute Recommend continuing IV antibiotics. Patient's arm was placed into a stockinette and from IV pole to improve drainage and decrease swelling. Should the patient not improve, she may require surgical debridement. The patient was placed on the OR schedule for Monday and we will reevaluate in the morning. History of Present Illness Chief complaint: Consulted for RUE cellmayelin HPI: Ms. Escalante is a 31 year old [id number] female who is she will IV drug abuse. Patient was shooting up in her right hand andinfection starting 4 days ago. She was seen in the emergency room left AMA. She presented in yesterday with worsening cellulitis. The patient was admitted for IV antibiotics. Lab testing confirms she has strep infection. The patient states that she has been improving on the IV antibiotics. She is currently on IV penicillin and clindamycin as recommended by Dr. Rosen. Past Med Surg Social Fam HX - Past Medical History Medical history: no medical history, other (IVDU) Psychiatric history: anxiety - Past Surgical History Surgical History: other (Unable to obtain as per above.) - Social History Smoking Status: Current every day smoker Smokeless Tobacco Status: No Alcohol use: none Drug use: opiates, IV Drug Use, prescription drug abuse, other Medications and Allergies Unable To Obtain [Unable to Obtain] 08/10/17 [History] 3 Allergy/AdvReac Type Severity Reaction Status Date / Time No Known Allergies Allergy Verified 08/07/17 17:53 All Systems Reviewed: The remainder of the systems were reviewed and are negative Physical Exam - Constitutional Vitals: Temp Pulse Resp BP Pulse Ox 98.0 F 65 16 111/74 99 08/10/17 14:52 08/10/17 14:52 08/10/17 14:52 08/10/17 14:52 08/10/17 14:52 General appearance IM: mild distress, A&O X 3, answers questions appropriately Exam: Right upper extremity: Erythema and swelling noted from fingertips up to the above elbow level. Patient has warmth of skin. Soft tissue on the dorsum of hand soft and boggy feeling with no crepitus and no fluctuance. There is 1 small raised lesion on dorsum of hand, where the needle injection site was located and the start of the infection.. Skin on the volar proximal forearm, to medial elbow is very indurated and tender, but not crepitance over fluctuance noted. She has fair range of motion of the hand with limited motion of the elbow. Sensation intact in the radial, median and ulnar nerve distributions. Good capillary refill at fingertips. Results - Labs Result Diagrams: 08/10/17 04:12 08/10/17 04:12 Labs: Abnormal lab results WBC 13.4 K/mcL (4.3-11.1) H 08/10/17 04:12 MPV 9.2 fL (9.4-12.4) L 08/10/17 04:12 Neutrophils # 10.5 K/mcL (1.6-8.9) H 08/10/17 04:12 ESR 22 mm/hr (0-15) H 08/09/17 06:09 Chloride 108 mEq/L (98-107) H 08/10/17 04:12 Carbon Dioxide 21 mEq/L (23-29) L 08/10/17 04:12 Creatinine 0.46 mg/dL (0.60-1.20) L 08/10/17 04:12 Glucose 106 mg/dL (70-105) H 08/10/17 04:12 POC Glucose 118 mg/dL (70-99) H 08/09/17 16:21 Calcium 8.3 mg/dL (8.6-10.3) L 08/10/17 04:12 Creatine Kinase 10 Units/L (30-223) L 08/10/17 04:12 C-Reactive Protein 257 mg/L (Less than 10) H 08/09/17 06:09 Urine Clarity Cloudy (Clear) A 08/09/17 06:20 Ur Specific Gilbert 1.030 (1.010-1.025) H 08/09/17 06:20 Urine Protein 30 mg/dL (Neg-Trace) H 08/09/17 06:20 Urine Bilirubin Small (Negative) H 08/09/17 06:20 Urine Urobilinogen 4.0 mg/dL (Normal) H 08/09/17 06:20 Urine Microscopic WBC 5-15 per hpf (0-3) H 08/09/17 06:20 Ur Squamous Epith Cells Many per lpf (None-Few) H 08/09/17 06:20 Streptococcus sp PCR DETECTED (Not Detect) A 08/09/17 05:59 Group A Strep DNA DETECTED (Not Detect) A 08/09/17 05:59 All other labs normal. - Diagnostic results Wrist/Hand CT: report reviewed (Significant cellulitis of right upper extremity , no focal fluid collections), image reviewed Consult Discharge Plan - Plan Referrals: NONE,PCP [Primary Care Provider] -
== END 2017-08-10 16:00 | disposition left against medical advice (07) | DRG 720 ==
LOC: 3ANU 05:29 → EMEROO 05:29 → 3ANU 08:48 → SUATTDRO 12:37
PROVIDERS: ADMIT Internal Medicine; ATTEND Internal Medicine

== ENCOUNTER → 2020-09-12 18:53 | Observation (INO) ==
[2020-09-12 18:34] LABS: Bacteria,Urine Few per hpf (None-Few); Bilirubin,Urine Negative (Negative); Blood,Urine Trace (Negative); Clarity,Urine Clear (Clear); Color,Urine Yellow (Yellow); Glucose,Urine (UA) Normal (Normal); Ketones,Urine Negative (Negative); Leukocyte Esterase,Urine Negative (Negative); Mucus,Urine Few per lpf (None-Few); Nitrite,Urine Negative (Negative); Protein,Urine Trace mg/dL (Neg-Trace); RBC,Urine 0-3 per hpf (0-3); Specific Gravity,Urine 1.024 (1.010-1.025); Squamous Epithelial Cell,Urine Few per hpf (None-Few); Urobilinogen,Urine Normal (Normal); WBC,Urine 0-3 per hpf (0-3)
== END | disposition home or self-care (01) ==
LOC: 1NENULAB
PROVIDERS: ADMIT Obstetrics & Gynecology; ATTEND Obstetrics & Gynecology